=== PATIENT | female | born 1980 | race Caucasian/White ===

== ENCOUNTER 2017-06-03 15:44 | Emergency (ER) | payer MEDICAID ==
[~2017-06-03] VITALS: Ht 162.6 cm; Wt 67.6 kg
[2017-06-03 15:49] VITALS: Ht 162.6 cm; Wt 67.6 kg
[2017-06-03 17:15] VITALS: BP 141/62
== END 2017-06-03 17:15 | disposition home or self-care (01) ==
LOC: ED 15:44
DX: J06.9 Acute upper respiratory infection, unspecified (principal); R50.9 Fever, unspecified; R07.9 Chest pain, unspecified
CPT/HCPCS: Q0092; Q0162